=== PATIENT | female | born 1975 | race Caucasian/White ===

== ENCOUNTER 2019-01-21 14:54 | Observation (INO) ==
[2019-01-21 16:58] LABS: Troponin I < 0.03 ng/mL (< 0.04)
[2019-01-21] MEDS ORDERED: Isovue-370 500 ML BOTTLE IVP ONE (17:01)
[2019-01-21] MEDS ORDERED: Ondansetron 4 MG/2 ML VIAL IVP STA (18:35)
[2019-01-21] MEDS ORDERED: *HR* FentaNYL (PF) 100 MCG/2 ML VIAL IVP ONE (18:35)
[2019-01-21 18:47] LABS: INR 0.9; Prothrombin Time 10.4 Seconds (9.4-12.1)
[2019-01-21 18:49] LABS: Activated Partial Thrombo Time 31.1 Seconds (26.0-36.0)
[2019-01-21 18:52] LABS: Basophils % 0.5 %; Eosinophils % 0.7 %; Hematocrit 40.9 % (35.3-44.9); Hemoglobin 13.6 g/dL (11.5-15.4); Immature Granulocytes % 0.2 % (0-4); Lymphocytes # 1.6 K/mcL (0.6-4.6); Lymphocytes % 26.8 %; Mean Corpuscular HGB Conc 33.3 g/dL (31.6-35.5); Mean Corpuscular Hemoglobin 30.9 pg (28.0-33.3); Mean Platelet Volume 10.4 fL (9.4-12.4); Monocytes # 0.2 K/mcL (0.0-1.3); Monocytes % 3.9 %; Neutrophils # 4.1 K/mcL (1.6-8.9); Nucleated Red Blood Cells 0.3 /100 WBC (0); Platelet Count 385 K/mcL (140-400); Segmented Neutrophils % 67.9 %; White Blood Count 6.1 K/mcL (4.3-11.1)
[2019-01-21 19:04] LABS: C-Reactive Protein < 5 mg/L (Less than 10)
[2019-01-21] MEDS ORDERED: Ketorolac 15 MG/ML VIAL IVP ONE (20:37)
[2019-01-21 20:39] LABS: Alanine Aminotransferase 27 Units/L (7-52); Albumin 4.3 g/dL (3.5-5.7); Albumin/Globulin Ratio 1.4 (1.1-2.2); Alkaline Phosphatase 84 Units/L (34-104); Aspartate Amino Transferase 35 Units/L (13-39); BUN/Creatinine Ratio 11 (6-26); Bilirubin,Total 0.3 mg/dL (0.3-1.0); Blood Urea Nitrogen 9 mg/dL (6-20); Calcium 9.9 mg/dL (8.6-10.3); Carbon Dioxide 22 mEq/L (23-29); Chloride 109 mEq/L (98-107); Globulin 3.1 g/dL (2.4-3.5); Glucose 92 mg/dL (70-105); Osmolality,Calculated 290 (280-300); Potassium 3.8 mEq/L (3.5-5.1); Sodium 141 mEq/L (136-145); Total Protein 7.4 g/dL (6.4-8.9); eGFR For African Americans > 60 (> 60); eGFR For Non-African Americans > 60 (> 60)
[2019-01-21] MEDS ORDERED: Ondansetron 4 MG/2 ML VIAL IVP ONE (20:49)
[2019-01-21] MEDS ORDERED: Ondansetron 4 MG/2 ML VIAL IVP PRN (21:54)
[2019-01-21] MEDS ORDERED: Naloxone 0.4 MG/ML INJ IVP PRN (21:54)
[2019-01-21] MEDS ORDERED: ALPRAZolam 0.5 MG TABLET PO PRN (22:05)
[2019-01-22] MEDS ORDERED: Ibuprofen 600 MG TABLET PO PRN (02:02)
[2019-01-22 04:07] LABS: Basophils # 0.1 K/mcL (0.0-0.2); Basophils % 0.9 %; Eosinophils # 0.1 K/mcL (0.0-0.6); Eosinophils % 1.3 %; Hematocrit 39.1 % (35.3-44.9); Hemoglobin 12.8 g/dL (11.5-15.4); Immature Granulocytes % 0.2 % (0-4); Lymphocytes # 2.5 K/mcL (0.6-4.6); Lymphocytes % 43.8 %; Mean Corpuscular HGB Conc 32.7 g/dL (31.6-35.5); Mean Corpuscular Hemoglobin 30.8 pg (28.0-33.3); Mean Corpuscular Volume 94.2 fL (83.0-100.0); Mean Platelet Volume 9.9 fL (9.4-12.4); Monocytes # 0.4 K/mcL (0.0-1.3); Monocytes % 6.8 %; Neutrophils # 2.6 K/mcL (1.6-8.9); Platelet Count 345 K/mcL (140-400); Red Blood Count 4.15 M/mcL (3.82-4.97); Red Cell Distribution Width 13.2 % (11.5-14.5); White Blood Count 5.6 K/mcL (4.3-11.1)
[2019-01-22 04:13] LABS: Prothrombin Time 11.3 Seconds (9.4-12.1)
[2019-01-22 04:14] LABS: Alanine Aminotransferase 25 Units/L (7-52); Albumin/Globulin Ratio 1.3 (1.1-2.2); Alkaline Phosphatase 78 Units/L (34-104); Aspartate Amino Transferase 27 Units/L (13-39); BUN/Creatinine Ratio 12 (6-26); Bilirubin,Total 0.3 mg/dL (0.3-1.0); Blood Urea Nitrogen 11 mg/dL (6-20); Calcium 9.1 mg/dL (8.6-10.3); Carbon Dioxide 27 mEq/L (23-29); Chloride 106 mEq/L (98-107); Glucose 92 mg/dL (70-105); Magnesium 1.9 mg/dL (1.6-2.6); Osmolality,Calculated 293 (280-300); Potassium 3.4 mEq/L (3.5-5.1); Sodium 142 mEq/L (136-145); eGFR For African Americans > 60 (> 60); eGFR For Non-African Americans > 60 (> 60)
[2019-01-22] MEDS: *HR* Heparin 5,000 UNIT/ML VIAL SQ SCH ×3 (06:14→20:36)
[2019-01-22] MEDS: Potassium Chloride Elixir 20 MEQ/15 ML UDC PO SCH ×2 (08:54→12:43)
[2019-01-22] MEDS ORDERED: Gabapentin 300 MG CAPSULE PO SCH (21:00)
[2019-01-22] MEDS ORDERED: Topiramate 100 MG TABLET PO SCH (21:00)
[2019-01-23] MEDS ORDERED: *HR* Promethazine 25 MG/ML VIAL IVP PRN (02:20)
[2019-01-23 03:38] LABS: Hematocrit 38.4 % (35.3-44.9); Hemoglobin 12.5 g/dL (11.5-15.4); Immature Granulocytes % 0.2 % (0-4); Lymphocytes % 31.7 %; Mean Corpuscular HGB Conc 32.6 g/dL (31.6-35.5); Mean Corpuscular Hemoglobin 30.9 pg (28.0-33.3); Mean Corpuscular Volume 94.8 fL (83.0-100.0); Mean Platelet Volume 9.9 fL (9.4-12.4); Platelet Count 306 K/mcL (140-400); Red Blood Count 4.05 M/mcL (3.82-4.97); Red Cell Distribution Width 13.1 % (11.5-14.5); White Blood Count 5.7 K/mcL (4.3-11.1)
[2019-01-23 03:39] LABS: Basophils % 0.3 %; Eosinophils # 0.1 K/mcL (0.0-0.6); Eosinophils % 1.4 %; Lymphocytes # 1.8 K/mcL (0.6-4.6); Monocytes # 0.4 K/mcL (0.0-1.3); Monocytes % 6.4 %; Neutrophils # 3.4 K/mcL (1.6-8.9)
[2019-01-23 03:55] LABS: BUN/Creatinine Ratio 12 (6-26); Blood Urea Nitrogen 11 mg/dL (6-20); Calcium 9.1 mg/dL (8.6-10.3); Carbon Dioxide 25 mEq/L (23-29); Chloride 107 mEq/L (98-107); Glucose 114 mg/dL (70-105); Magnesium 1.9 mg/dL (1.6-2.6); Osmolality,Calculated 288 (280-300); Phosphorous 4.2 mg/dL (2.7-4.5); Sodium 139 mEq/L (136-145); eGFR For African Americans > 60 (> 60); eGFR For Non-African Americans > 60 (> 60)
[2019-01-23] MEDS: *HR* Heparin 5,000 UNIT/ML VIAL SQ SCH (05:40)
[2019-01-23 07:44] VITALS: BP 110/71
[2019-01-23 07:59] LABS: Amphetamine Screen,Urine Negative ng/mL (Cutoff=1000); Barbiturate Screen,Urine Negative ng/mL (Cutoff=200); Benzodiazepines Screen,Urine Positive ng/mL (Cutoff=200); Cannabinoid Screen,Urine Negative ng/mL (Cutoff = 50); Cocaine Screen,Urine Negative ng/mL (Cutoff= 300); Opiate Screen,Urine Negative ng/mL (Cutoff=300); Phencyclidine Screen,Urine Negative ng/mL (Cutoff=25)
[2019-01-23] MEDS ORDERED: Ketorolac 30 MG/ML VIAL IVP ONE (09:20)
[2019-01-23] MEDS ORDERED: Prochlorperazine 10 MG/2 ML VIAL IVP PRN (09:21)
== END 2019-01-23 14:12 | disposition home or self-care (01) ==
LOC: 2NENU 14:54 → EMEROOARM 14:54 → 2NENU 22:30
PROVIDERS: ADMIT Internal Medicine; ATTEND Internal Medicine

== ENCOUNTER 2020-06-26 14:43 | Inpatient (IN) ==
[2020-06-26 15:21] LABS: Basophils # 0.1 K/mcL (0.0-0.2); Basophils % 0.5 %; Eosinophils # 0.1 K/mcL (0.0-0.6); Eosinophils % 0.7 %; Hematocrit 37.8 % (35.3-44.9); Hemoglobin 12.6 g/dL (11.5-15.4); Immature Granulocytes % 0.2 % (0-4); Lymphocytes # 2.4 K/mcL (0.6-4.6); Lymphocytes % 22.3 %; Mean Corpuscular HGB Conc 33.3 g/dL (31.6-35.5); Mean Corpuscular Hemoglobin 30.6 pg (28.0-33.3); Mean Corpuscular Volume 91.7 fL (83.0-100.0); Mean Platelet Volume 10.1 fL (9.4-12.4); Monocytes # 0.6 K/mcL (0.0-1.3); Monocytes % 5.6 %; Neutrophils # 7.5 K/mcL (1.6-8.9); Platelet Count 354 K/mcL (140-400); Red Blood Count 4.12 M/mcL (3.82-4.97); Red Cell Distribution Width 12.8 % (11.5-14.5); Segmented Neutrophils % 70.7 %; White Blood Count 10.6 K/mcL (4.3-11.1)
[2020-06-26] MEDS ORDERED: Morphine Sulfate 2 MG/ML SYRINGE IVP ONE (15:27)
[2020-06-26] MEDS ORDERED: 0.9 % Sodium Chloride 1,000 ML IVC ONE ×2 (15:27→18:11)
[2020-06-26] MEDS ORDERED: Ondansetron 4 MG/2 ML VIAL IVP ONE ×2 (15:27→18:11)
[2020-06-26 15:30] LABS: Prothrombin Time 11.6 Seconds (9.4-12.1)
[2020-06-26 15:33] LABS: Activated Partial Thrombo Time 28.2 Seconds (26.0-36.0)
[2020-06-26 15:37] LABS: BUN/Creatinine Ratio 11 (6-26); Blood Urea Nitrogen 10 mg/dL (6-20); Calcium 9.6 mg/dL (8.6-10.3); Carbon Dioxide 24 mEq/L (23-29); Chloride 107 mEq/L (98-107); Glucose 120 mg/dL (70-105); Osmolality,Calculated 288 (280-300); Potassium 3.2 mEq/L (3.5-5.1); Sodium 139 mEq/L (136-145); eGFR For African Americans > 60 (> 60); eGFR For Non-African Americans > 60 (> 60)
[2020-06-26 15:38] LABS: Troponin I < 0.03 ng/mL (< 0.04)
[2020-06-26 15:44] LABS: Alanine Aminotransferase 18 Units/L (7-52); Albumin 4.3 g/dL (3.5-5.7); Albumin/Globulin Ratio 1.3 (1.1-2.2); Alkaline Phosphatase 86 Units/L (34-104); Aspartate Amino Transferase 20 Units/L (13-39); Bilirubin,Direct 0.1 mg/dL (0.0-0.2); Bilirubin,Indirect 0.2 mg/dL (0.0-1.0); Bilirubin,Total 0.3 mg/dL (0.3-1.0); Globulin 3.3 g/dL (2.4-3.5); Total Protein 7.6 g/dL (6.4-8.9)
[2020-06-26] MEDS ORDERED: Isovue-370 500 ML BOTTLE IVP ONE (15:48)
[2020-06-26] MEDS ORDERED: *HR* FentaNYL (PF) 100 MCG/2 ML VIAL IVP ONE (16:41)
[2020-06-26] MEDS ORDERED: *HR* HYDROmorphone (PF) 1 MG/ML SYRINGE IVP ONE (18:11)
[2020-06-26] MEDS ORDERED: Piperacillin/Tazobactam 3.375 GM in 0.9 % Sodium Chloride Mini Bag 100 ML IVPB ONE (18:11)
[2020-06-26 18:27] LABS: Lipase 34 Units/L (11-82)
[2020-06-26] MEDS ORDERED: Ondansetron 4 MG/2 ML VIAL IVP PRN (19:29)
[2020-06-26] MEDS ORDERED: Naloxone 0.4 MG/ML INJ IVP PRN (19:29)
[2020-06-26] MEDS ORDERED: 0.9 % Sodium Chloride w KCl 20 MEQ/1,000 ML MLS IVC SCH (19:30)
[2020-06-26] MEDS ORDERED: Lidocaine -MPF 2% 2 ML VIAL ONE (19:45)
[2020-06-26] MEDS ORDERED: *HR* Rocuronium Bromide 50 MG/5 ML VIAL ONE (19:45)
[2020-06-26] MEDS ORDERED: Lidocaine -MPF 4% 5 ML AMPUL ONE (19:45)
[2020-06-26] MEDS ORDERED: *HR* Succinylcholine 200 MG/10 ML VIAL IVP ONE (19:45)
[2020-06-26] MEDS ORDERED: *HR* Propofol 200 MG/20 ML VIAL IVP ONE (19:46)
[2020-06-26] MEDS ORDERED: *HR* Midazolam HCl 2 MG/2 ML VIAL ONE (19:47)
[2020-06-26] MEDS ORDERED: *HR* FentaNYL (PF) 100 MCG/2 ML VIAL ONE (19:47)
[2020-06-26 19:50] LABS: Influenza A PCR Negative (Negative); Influenza B PCR Negative (Negative); Resp. Syncytial Virus PCR Negative (Negative)
[2020-06-26 19:52] LABS: SARS-CoV-2 by PCR (In House) Negative (Negative)
[2020-06-26] MEDS ORDERED: Acetaminophen IV 1,000 MG/100 ML BAG IVPB ONE ×2 (20:18→22:19)
[2020-06-26] MEDS ORDERED: Famotidine 20 MG/2 ML VIAL IVP ONE (20:18)
[2020-06-26] MEDS ORDERED: *HR* Labetalol 20 MG/4 ML SYRINGE IVP PRN (20:18)
[2020-06-26] MEDS ORDERED: *HR* HYDROmorphone 2 MG TABLET PO PRN (20:18)
[2020-06-26] MEDS ORDERED: Ondansetron 4 MG/2 ML VIAL ONE ×2 (20:23→23:38)
[2020-06-26] MEDS ORDERED: Dexamethasone 4 MG/ML VIAL ONE ×2 (20:23→23:38)
[2020-06-26] MEDS ORDERED: Ringers Solution, Lactated 1,000 ML ONE (20:56)
[2020-06-26] MEDS ORDERED: Famotidine 20 MG/2 ML VIAL ONE (22:18)
[2020-06-26] MEDS ORDERED: *HR* PHENYLEPHRINE 1,000 MCG/10 ML SYRINGE IVP ONE (23:08)
[2020-06-26] MEDS ORDERED: *HR* HYDROMORPHONE 2 MG/ML VIAL ONE (23:43)
[2020-06-26] MEDS ORDERED: Sugammadex Sodium 200 MG/2 ML VIAL IV ONE (23:48)
[2020-06-27] MEDS: *HR* HYDROmorphone (PF) 1 MG/ML SYRINGE IVP PRN ×3 (00:28→00:50)
[2020-06-27] MEDS ORDERED: Ringers Solution, Lactated 1,000 ML ONE (00:28)
[2020-06-27] MEDS ORDERED: Naloxone 0.4 MG/ML INJ IVP PRN (01:26)
[2020-06-27] MEDS: 0.9 % Sodium Chloride w KCl 20 MEQ/1,000 ML MLS IVC SCH ×2 (02:22→14:42)
[2020-06-27 02:28] LABS: Basophils % 0.2 %; Hematocrit 32.6 % (35.3-44.9); Immature Granulocytes % 0.5 % (0-4); Lymphocytes # 0.7 K/mcL (0.6-4.6); Lymphocytes % 3.7 %; Mean Corpuscular HGB Conc 32.8 g/dL (31.6-35.5); Mean Corpuscular Hemoglobin 31.3 pg (28.0-33.3); Mean Corpuscular Volume 95.3 fL (83.0-100.0); Mean Platelet Volume 10.1 fL (9.4-12.4); Monocytes # 0.8 K/mcL (0.0-1.3); Monocytes % 4.1 %; Platelet Count 287 K/mcL (140-400); Red Blood Count 3.42 M/mcL (3.82-4.97); Red Cell Distribution Width 13.2 % (11.5-14.5); Segmented Neutrophils % 91.5 %
[2020-06-27 02:29] LABS: Hemoglobin 10.7 g/dL (11.5-15.4); Neutrophils # 17.7 K/mcL (1.6-8.9); White Blood Count 19.3 K/mcL (4.3-11.1)
[2020-06-27 02:52] LABS: BUN/Creatinine Ratio 9 (6-26); Blood Urea Nitrogen 8 mg/dL (6-20); Calcium 8.1 mg/dL (8.6-10.3); Carbon Dioxide 21 mEq/L (23-29); Chloride 109 mEq/L (98-107); Glucose 154 mg/dL (70-105); Magnesium 1.3 mg/dL (1.6-2.6); Osmolality,Calculated 283 (280-300); Phosphorous 2.5 mg/dL (2.7-4.5); Potassium 3.9 mEq/L (3.5-5.1); Sodium 136 mEq/L (136-145); eGFR For African Americans > 60 (> 60); eGFR For Non-African Americans > 60 (> 60)
[2020-06-27] MEDS ORDERED: Piperacillin/Tazobactam 3.375 GM in 0.9 % Sodium Chloride Mini Bag 100 ML IVPB SCH (03:00)
[2020-06-27] MEDS: *HR* Heparin 5,000 UNIT/ML VIAL SQ SCH ×2 (05:07→16:51)
[2020-06-27] MEDS: Pantoprazole 40 MG VIAL IVP SCH ×2 (05:07→16:51)
[2020-06-27] MEDS: Acetaminophen IV 1,000 MG/100 ML BAG IVPB SCH ×3 (05:08→20:56)
[2020-06-27] MEDS ORDERED: *HR* Heparin 5,000 UNIT/ML VIAL SQ SCH (06:00)
[2020-06-27] MEDS: Chloraseptic Spray 177 ML BOTTLE MM PRN (09:10)
[2020-06-27] MEDS ORDERED: *HR* HYDROmorphone (PF) 1 MG/ML SYRINGE IVP ONE (11:45)
[2020-06-27] MEDS ORDERED: MetroNIDAZOLE 500 MG/100 ML 500 MG/100 ML BAG IVPB SCH (13:00)
[2020-06-27] MEDS: Piperacillin/Tazobactam 3.375 GM in 0.9 % Sodium Chloride Mini Bag 100 ML IVPB SCH ×2 (13:01→20:58)
[2020-06-27 14:40] LABS: Hematocrit 31.1 % (35.3-44.9); Hemoglobin 10.1 g/dL (11.5-15.4)
[2020-06-27] MEDS: Clotrimazole Vag CRM 45 GM TUBE VG SCH ×2 (17:38→20:58)
[2020-06-27] MEDS ORDERED: Lidocaine -MPF 1% 5 ML AMPUL INFILT ONE (17:44)
[2020-06-27] MEDS: Fluconazole 200 MG/100 ML 100 MG/50 ML BAG IVPB SCH (20:57)
[2020-06-27] MEDS: 0.9 % Sodium Chloride 1,000 ML IVC SCH (20:57)
[2020-06-27] MEDS: *HR* LORazepam 2 MG/ML VIAL IVP PRN (21:03)
[2020-06-27] MEDS: Ondansetron 4 MG/2 ML VIAL IVP PRN (21:03)
[2020-06-28] MEDS: Acetaminophen IV 1,000 MG/100 ML BAG IVPB SCH ×5 (01:18→23:43)
[2020-06-28] MEDS: *HR* Heparin 5,000 UNIT/ML VIAL SQ SCH ×2 (05:56→18:00)
[2020-06-28] MEDS: Pantoprazole 40 MG VIAL IVP SCH ×2 (05:56→18:00)
[2020-06-28] MEDS: Piperacillin/Tazobactam 3.375 GM in 0.9 % Sodium Chloride Mini Bag 100 ML IVPB SCH ×3 (05:56→20:05)
[2020-06-28] MEDS: Ondansetron 4 MG/2 ML VIAL IVP PRN ×4 (06:06→23:40)
[2020-06-28 07:14] LABS: Basophils % 0.3 %; Eosinophils % 0.1 %; Hematocrit 28.3 % (35.3-44.9); Hemoglobin 9.3 g/dL (11.5-15.4); Immature Granulocytes % 0.4 % (0-4); Lymphocytes # 1.8 K/mcL (0.6-4.6); Lymphocytes % 14.4 %; Mean Corpuscular HGB Conc 32.9 g/dL (31.6-35.5); Mean Corpuscular Hemoglobin 31.1 pg (28.0-33.3); Mean Corpuscular Volume 94.6 fL (83.0-100.0); Mean Platelet Volume 10.4 fL (9.4-12.4); Monocytes # 0.5 K/mcL (0.0-1.3); Monocytes % 4.2 %; Neutrophils # 10.2 K/mcL (1.6-8.9); Platelet Count 240 K/mcL (140-400); Red Blood Count 2.99 M/mcL (3.82-4.97); Red Cell Distribution Width 13.3 % (11.5-14.5); Segmented Neutrophils % 80.6 %; White Blood Count 12.7 K/mcL (4.3-11.1)
[2020-06-28 08:04] LABS: Alanine Aminotransferase 72 Units/L (7-52); Albumin/Globulin Ratio 1.1 (1.1-2.2); Alkaline Phosphatase 71 Units/L (34-104); Aspartate Amino Transferase 53 Units/L (13-39); BUN/Creatinine Ratio 13 (6-26); Bilirubin,Total 0.6 mg/dL (0.3-1.0); Blood Urea Nitrogen 9 mg/dL (6-20); Calcium 7.7 mg/dL (8.6-10.3); Carbon Dioxide 22 mEq/L (23-29); Chloride 113 mEq/L (98-107); Globulin 2.7 g/dL (2.4-3.5); Glucose 83 mg/dL (70-105); Magnesium 1.9 mg/dL (1.6-2.6); Osmolality,Calculated 286 (280-300); Phosphorous 1.5 mg/dL (2.7-4.5); Potassium 3.7 mEq/L (3.5-5.1); Sodium 139 mEq/L (136-145); Total Protein 5.7 g/dL (6.4-8.9); eGFR For African Americans > 60 (> 60); eGFR For Non-African Americans > 60 (> 60)
[2020-06-28] MEDS: Fluconazole 200 MG/100 ML 100 MG/50 ML BAG IVPB SCH (08:43)
[2020-06-28 08:56] LABS: Triglycerides 71 mg/dL (< 150)
[2020-06-28] MEDS ORDERED: Potassium Phosphate 44 MEQ in 0.9 % Sodium Chloride 250 ML IVPB ONE (09:41)
[2020-06-28] MEDS ORDERED: Calcium Gluconate 1gm/50mL 1 GM/50 ML BAG IVPB ONE (09:48)
[2020-06-28] MEDS ORDERED: Dextrose Gel 15 GM/37.5 ML TUBE PO PRN ×2 (09:50)
[2020-06-28] MEDS ORDERED: *HR* Dextrose 50 % in Water (Vial) 50 ML VIAL IVP PRN (09:50)
[2020-06-28] MEDS ORDERED: D5% in Water 1,000 ML IVC PRN (09:50)
[2020-06-28] MEDS ORDERED: D10% in Water 500 ML IVC PRN (10:50)
[2020-06-28] MEDS: Chloraseptic Spray 177 ML BOTTLE MM PRN ×2 (11:05→15:54)
[2020-06-28] MEDS: Insulin LISPRO 300 UNITS/3 ML VIAL SUBQ SCH ×2 (11:57→18:01)
[2020-06-28] MEDS: 0.9 % Sodium Chloride 1,000 ML IVC SCH (13:41)
[2020-06-28] MEDS ORDERED: Clinimix E 5%-15% SOLUTION 2,000 ML IVC SCH (17:00)
[2020-06-28] MEDS: Clotrimazole Vag CRM 45 GM TUBE VG SCH (19:46)
[2020-06-28] MEDS ORDERED: Insulin LISPRO 300 UNITS/3 ML VIAL SUBQ SCH (21:00)
[2020-06-28] MEDS: *HR* LORazepam 2 MG/ML VIAL IVP PRN (23:38)
[2020-06-29] MEDS: Insulin LISPRO 300 UNITS/3 ML VIAL SUBQ SCH ×5 (02:05→21:34)
[2020-06-29] MEDS: 0.9 % Sodium Chloride 1,000 ML IVC SCH ×2 (02:16→15:05)
[2020-06-29 04:02] LABS: BUN/Creatinine Ratio 14 (6-26); Blood Urea Nitrogen 8 mg/dL (6-20); Calcium 7.4 mg/dL (8.6-10.3); Carbon Dioxide 21 mEq/L (23-29); Chloride 110 mEq/L (98-107); Glucose 124 mg/dL (70-105); Magnesium 1.9 mg/dL (1.6-2.6); Osmolality,Calculated 284 (280-300); Phosphorous 1.9 mg/dL (2.7-4.5); Potassium 3.4 mEq/L (3.5-5.1); Sodium 137 mEq/L (136-145); eGFR For African Americans > 60 (> 60); eGFR For Non-African Americans > 60 (> 60)
[2020-06-29] MEDS: Acetaminophen IV 1,000 MG/100 ML BAG IVPB SCH ×3 (05:27→18:03)
[2020-06-29] MEDS: Piperacillin/Tazobactam 3.375 GM in 0.9 % Sodium Chloride Mini Bag 100 ML IVPB SCH ×3 (05:28→21:39)
[2020-06-29] MEDS: *HR* Heparin 5,000 UNIT/ML VIAL SQ SCH ×2 (05:28→18:09)
[2020-06-29] MEDS: Pantoprazole 40 MG VIAL IVP SCH ×2 (05:29→18:10)
[2020-06-29] MEDS: Ondansetron 4 MG/2 ML VIAL IVP PRN ×3 (05:57→21:39)
[2020-06-29 07:26] LABS: Cancer Antigen-GI (CA 19-9) <1 U/mL (0-37)
[2020-06-29 07:31] LABS: Gastrin 118 pg/mL (0-100)
[2020-06-29] MEDS: Fluconazole 200 MG/100 ML 100 MG/50 ML BAG IVPB SCH (08:06)
[2020-06-29] MEDS ORDERED: Potassium Phosphate 44 MEQ in 0.9 % Sodium Chloride 250 ML IVPB ONE (08:09)
[2020-06-29] MEDS ORDERED: Potassium Chloride 20 MEQ, Lidocaine 1% 2 ML in 0.9 % Sodium Chloride 250 ML IVPB ONE (08:09)
[2020-06-29] MEDS: *HR* LORazepam 2 MG/ML VIAL IVP PRN ×2 (12:43→21:38)
[2020-06-29] MEDS: Calcium Gluconate 1gm/50mL 1 GM/50 ML BAG IVPB SCH ×2 (16:26→18:10)
[2020-06-29] MEDS ORDERED: Clinimix E 5%-15% SOLUTION 2,000 ML with MVI, adult with vitamin K 10 ML IVC SCH (17:00)
[2020-06-30] MEDS: Insulin LISPRO 300 UNITS/3 ML VIAL SUBQ SCH ×6 (00:16→20:28)
[2020-06-30] MEDS: Acetaminophen IV 1,000 MG/100 ML BAG IVPB SCH ×4 (00:16→18:18)
[2020-06-30 01:50] LABS: Basophils % 0.3 %; Eosinophils # 0.1 K/mcL (0.0-0.6); Eosinophils % 1.5 %; Hematocrit 27.8 % (35.3-44.9); Hemoglobin 9.4 g/dL (11.5-15.4); Immature Granulocytes % 0.4 % (0-4); Lymphocytes % 21.1 %; Mean Corpuscular HGB Conc 33.8 g/dL (31.6-35.5); Mean Corpuscular Hemoglobin 31.1 pg (28.0-33.3); Mean Corpuscular Volume 92.1 fL (83.0-100.0); Monocytes # 0.5 K/mcL (0.0-1.3); Monocytes % 5.4 %; Neutrophils # 6.9 K/mcL (1.6-8.9); Platelet Count 266 K/mcL (140-400); Red Blood Count 3.02 M/mcL (3.82-4.97); Red Cell Distribution Width 12.8 % (11.5-14.5); Segmented Neutrophils % 71.3 %; White Blood Count 9.7 K/mcL (4.3-11.1)
[2020-06-30 02:12] LABS: BUN/Creatinine Ratio 12 (6-26); Blood Urea Nitrogen 6 mg/dL (6-20); Calcium 8.1 mg/dL (8.6-10.3); Carbon Dioxide 25 mEq/L (23-29); Chloride 106 mEq/L (98-107); Glucose 142 mg/dL (70-105); Magnesium 1.6 mg/dL (1.6-2.6); Osmolality,Calculated 282 (280-300); Phosphorous 2.9 mg/dL (2.7-4.5); Potassium 3.1 mEq/L (3.5-5.1); Sodium 136 mEq/L (136-145); eGFR For African Americans > 60 (> 60); eGFR For Non-African Americans > 60 (> 60)
[2020-06-30] MEDS: Piperacillin/Tazobactam 3.375 GM in 0.9 % Sodium Chloride Mini Bag 100 ML IVPB SCH ×3 (06:04→21:23)
[2020-06-30] MEDS: Pantoprazole 40 MG VIAL IVP SCH ×2 (06:04→17:57)
[2020-06-30] MEDS: *HR* Heparin 5,000 UNIT/ML VIAL SQ SCH ×2 (06:04→17:58)
[2020-06-30] MEDS: Ondansetron 4 MG/2 ML VIAL IVP PRN ×2 (08:15→21:22)
[2020-06-30] MEDS: *HR* LORazepam 2 MG/ML VIAL IVP PRN ×2 (08:15→21:22)
[2020-06-30] MEDS: Fluconazole 200 MG/100 ML 100 MG/50 ML BAG IVPB SCH (08:16)
[2020-06-30] MEDS ORDERED: Potassium Phosphate 44 MEQ in 0.9 % Sodium Chloride 250 ML IVPB ONE (09:37)
[2020-06-30] MEDS ORDERED: Clinimix E 5%-15% SOLUTION 2,000 ML, Parenteral Amino Acid 10% 0 ML with MVI, adult wi... IVC SCH (17:00)
[2020-06-30] MEDS ORDERED: Clinimix E 5%-15% SOLUTION 2,000 ML IVC SCH (18:55)
[2020-06-30] MEDS ORDERED: traZODone 50 MG TABLET PO PRN (20:12)
[2020-07-01] MEDS: Insulin LISPRO 300 UNITS/3 ML VIAL SUBQ SCH ×6 (00:59→21:21)
[2020-07-01] MEDS: Acetaminophen IV 1,000 MG/100 ML BAG IVPB SCH ×4 (01:29→17:51)
[2020-07-01] MEDS: Piperacillin/Tazobactam 3.375 GM in 0.9 % Sodium Chloride Mini Bag 100 ML IVPB SCH ×3 (05:52→21:21)
[2020-07-01] MEDS: Pantoprazole 40 MG VIAL IVP SCH ×2 (05:53→17:37)
[2020-07-01] MEDS: *HR* Heparin 5,000 UNIT/ML VIAL SQ SCH ×2 (05:53→17:39)
[2020-07-01 06:49] LABS: Alanine Aminotransferase 48 Units/L (7-52); Albumin 3.1 g/dL (3.5-5.7); Alkaline Phosphatase 83 Units/L (34-104); Aspartate Amino Transferase 48 Units/L (13-39); BUN/Creatinine Ratio 21 (6-26); Bilirubin,Total 0.3 mg/dL (0.3-1.0); Blood Urea Nitrogen 11 mg/dL (6-20); Calcium 8.5 mg/dL (8.6-10.3); Carbon Dioxide 27 mEq/L (23-29); Chloride 105 mEq/L (98-107); Globulin 3.1 g/dL (2.4-3.5); Glucose 126 mg/dL (70-105); Magnesium 1.9 mg/dL (1.6-2.6); Osmolality,Calculated 287 (280-300); Potassium 3.4 mEq/L (3.5-5.1); Sodium 138 mEq/L (136-145); Total Protein 6.2 g/dL (6.4-8.9); eGFR For African Americans > 60 (> 60); eGFR For Non-African Americans > 60 (> 60)
[2020-07-01 06:56] LABS: Hematocrit 31.3 % (35.3-44.9); Hemoglobin 10.4 g/dL (11.5-15.4); Mean Corpuscular HGB Conc 33.2 g/dL (31.6-35.5); Mean Corpuscular Hemoglobin 30.8 pg (28.0-33.3); Mean Corpuscular Volume 92.6 fL (83.0-100.0); Mean Platelet Volume 9.6 fL (9.4-12.4); Platelet Count 338 K/mcL (140-400); Red Blood Count 3.38 M/mcL (3.82-4.97)
[2020-07-01] MEDS: Fluconazole 200 MG/100 ML 100 MG/50 ML BAG IVPB SCH (07:57)
[2020-07-01 10:09] LABS: Phosphorous 4.1 mg/dL (2.7-4.5)
[2020-07-01] MEDS: Ondansetron 4 MG/2 ML VIAL IVP PRN (11:36)
[2020-07-01] MEDS ORDERED: Clinimix E 5%-15% SOLUTION 2,000 ML with MVI, adult with vitamin K 10 ML IVC SCH (17:00)
[2020-07-01] MEDS: *HR* LORazepam 2 MG/ML VIAL IVP PRN (21:22)
[2020-07-02] MEDS: Insulin LISPRO 300 UNITS/3 ML VIAL SUBQ SCH ×6 (00:46→21:17)
[2020-07-02] MEDS: Acetaminophen IV 1,000 MG/100 ML BAG IVPB SCH ×4 (01:05→17:58)
[2020-07-02] MEDS: Pantoprazole 40 MG VIAL IVP SCH ×2 (06:02→17:57)
[2020-07-02] MEDS: *HR* Heparin 5,000 UNIT/ML VIAL SQ SCH ×2 (06:06→17:57)
[2020-07-02] MEDS: Piperacillin/Tazobactam 3.375 GM in 0.9 % Sodium Chloride Mini Bag 100 ML IVPB SCH ×3 (06:06→21:31)
[2020-07-02 06:36] LABS: Hematocrit 32.9 % (35.3-44.9); Hemoglobin 10.8 g/dL (11.5-15.4); Mean Corpuscular HGB Conc 32.8 g/dL (31.6-35.5); Mean Corpuscular Hemoglobin 30.8 pg (28.0-33.3); Mean Corpuscular Volume 93.7 fL (83.0-100.0); Mean Platelet Volume 9.6 fL (9.4-12.4); Platelet Count 371 K/mcL (140-400); Red Blood Count 3.51 M/mcL (3.82-4.97); Red Cell Distribution Width 13.1 % (11.5-14.5); White Blood Count 7.7 K/mcL (4.3-11.1)
[2020-07-02 07:00] LABS: BUN/Creatinine Ratio 24 (6-26); Blood Urea Nitrogen 12 mg/dL (6-20); Carbon Dioxide 26 mEq/L (23-29); Chloride 105 mEq/L (98-107); Glucose 101 mg/dL (70-105); Osmolality,Calculated 286 (280-300); Phosphorous 3.4 mg/dL (2.7-4.5); Potassium 4.1 mEq/L (3.5-5.1); Sodium 138 mEq/L (136-145); eGFR For African Americans > 60 (> 60); eGFR For Non-African Americans > 60 (> 60)
[2020-07-02] MEDS: Fluconazole 200 MG/100 ML 100 MG/50 ML BAG IVPB SCH (10:36)
[2020-07-02] MEDS ORDERED: Clinimix E 5%-15% SOLUTION 2,000 ML with MVI, adult with vitamin K 10 ML IVC SCH (17:00)
[2020-07-02] MEDS: *HR* LORazepam 2 MG/ML VIAL IVP PRN (23:39)
[2020-07-02] MEDS: Morphine Sulfate 2 MG/ML SYRINGE IVP PRN (23:40)
[2020-07-03] MEDS: Insulin LISPRO 300 UNITS/3 ML VIAL SUBQ SCH ×6 (00:06→20:20)
[2020-07-03] MEDS: Acetaminophen IV 1,000 MG/100 ML BAG IVPB SCH ×5 (01:09→23:31)
[2020-07-03] MEDS: Piperacillin/Tazobactam 3.375 GM in 0.9 % Sodium Chloride Mini Bag 100 ML IVPB SCH ×3 (04:46→20:20)
[2020-07-03] MEDS: *HR* Heparin 5,000 UNIT/ML VIAL SQ SCH ×2 (04:46→17:09)
[2020-07-03] MEDS: Pantoprazole 40 MG VIAL IVP SCH ×2 (04:47→17:09)
[2020-07-03] MEDS: Morphine Sulfate 2 MG/ML SYRINGE IVP PRN (04:54)
[2020-07-03 05:02] LABS: Hematocrit 31.8 % (35.3-44.9); Hemoglobin 10.5 g/dL (11.5-15.4); Mean Corpuscular Hemoglobin 31.3 pg (28.0-33.3); Mean Corpuscular Volume 94.9 fL (83.0-100.0); Mean Platelet Volume 9.4 fL (9.4-12.4); Platelet Count 380 K/mcL (140-400); Red Blood Count 3.35 M/mcL (3.82-4.97); Red Cell Distribution Width 13.2 % (11.5-14.5); White Blood Count 9.2 K/mcL (4.3-11.1)
[2020-07-03 05:26] LABS: BUN/Creatinine Ratio 18 (6-26); Blood Urea Nitrogen 10 mg/dL (6-20); Calcium 8.6 mg/dL (8.6-10.3); Carbon Dioxide 25 mEq/L (23-29); Chloride 102 mEq/L (98-107); Glucose 93 mg/dL (70-105); Magnesium 2.1 mg/dL (1.6-2.6); Osmolality,Calculated 281 (280-300); Phosphorous 3.7 mg/dL (2.7-4.5); Potassium 3.8 mEq/L (3.5-5.1); Sodium 136 mEq/L (136-145); eGFR For African Americans > 60 (> 60); eGFR For Non-African Americans > 60 (> 60)
[2020-07-03] MEDS: Fluconazole 200 MG/100 ML 100 MG/50 ML BAG IVPB SCH (09:51)
[2020-07-03] MEDS ORDERED: Clinimix E 5%-15% SOLUTION 2,000 ML with MVI, adult with vitamin K 10 ML IVC SCH (17:00)
[2020-07-04] MEDS: Insulin LISPRO 300 UNITS/3 ML VIAL SUBQ SCH ×3 (00:27→08:48)
[2020-07-04] MEDS: Pantoprazole 40 MG VIAL IVP SCH (06:00)
[2020-07-04] MEDS: Acetaminophen IV 1,000 MG/100 ML BAG IVPB SCH ×2 (06:00→12:07)
[2020-07-04] MEDS: Piperacillin/Tazobactam 3.375 GM in 0.9 % Sodium Chloride Mini Bag 100 ML IVPB SCH (06:00)
[2020-07-04] MEDS: *HR* Heparin 5,000 UNIT/ML VIAL SQ SCH (06:00)
[2020-07-04] MEDS: Ondansetron 4 MG/2 ML VIAL IVP PRN (06:59)
[2020-07-04 07:44] LABS: BUN/Creatinine Ratio 15 (6-26); Blood Urea Nitrogen 9 mg/dL (6-20); Calcium 9.2 mg/dL (8.6-10.3); Carbon Dioxide 25 mEq/L (23-29); Chloride 102 mEq/L (98-107); Glucose 144 mg/dL (70-105); Magnesium 1.9 mg/dL (1.6-2.6); Osmolality,Calculated 283 (280-300); Phosphorous 3.7 mg/dL (2.7-4.5); Potassium 3.7 mEq/L (3.5-5.1); Sodium 136 mEq/L (136-145); eGFR For African Americans > 60 (> 60); eGFR For Non-African Americans > 60 (> 60)
[2020-07-04 08:14] VITALS: BP 120/73
[2020-07-04] MEDS: Fluconazole 200 MG/100 ML 100 MG/50 ML BAG IVPB SCH (08:48)
== END 2020-07-04 14:13 | disposition home or self-care (01) | DRG 229 ==
LOC: EMEROOARM 14:43 → 3ANU 14:43 → OBSVTOIN 19:43 → SUATTDRO 19:43 → 3ANU 20:48
PROVIDERS: ADMIT Family Medicine; ATTEND Internal Medicine